=== PATIENT | female | born 1950 | race Two or more races ===

== ENCOUNTER 2023-01-10 07:40 | Day surgery (SDC) | payer OTHER | END 2023-01-10 15:50 | disposition home or self-care (01) | LOC: AMB-ENDOS 07:40 → EDBD 13:00 → AMB-ENDOS 13:00 | PROVIDERS: ATTEND Colon & Rectal Surgery | DX: D12.2 Benign neoplasm of ascending colon (principal); K57.30 Diverticulosis of large intestine without perforation or abscess without bleeding; K64.8 Other hemorrhoids; Z20.822 Contact with and (suspected) exposure to COVID-19; I10 Essential (primary) hypertension ==

== ENCOUNTER 2023-03-29 10:45 | Inpatient (IN) | payer OTHER ==
[~2023-03-29] VITALS: Ht 152.4 cm; Wt 53.5 kg
[2023-03-30] MEDS ORDERED: COZAAR50 MG PO (10:56)
[2023-03-30] MEDS ORDERED: TOPROL XL50 M1 PO (10:56)
== END 2023-04-08 21:25 | disposition home or self-care (01) | DRG 331 ==
LOC: SURH 04-04 07:00 → O/R 04-04 07:18 → SURH 04-04 08:45
PROVIDERS: ADMIT Colon & Rectal Surgery; ATTEND Colon & Rectal Surgery
PROC: 07BB4ZZ Excision of Mesenteric Lymphatic, Percutaneous Endoscopic Approach (ICD-10-PCS; 2023-04-04)
PROC: 0DTF4ZZ Resection of Right Large Intestine, Percutaneous Endoscopic Approach (ICD-10-PCS; principal; 2023-04-04 07:00)
DX: C18.2 Malignant neoplasm of ascending colon (principal); R59.0 Localized enlarged lymph nodes; Z20.822 Contact with and (suspected) exposure to COVID-19; I10 Essential (primary) hypertension